=== PATIENT | female | born 1990 | race Caucasian/White ===

== ENCOUNTER 2022-06-15 19:23 | Emergency (ER) | payer OTHER ==
[2022-06-15 19:36] VITALS: BP 130/83; PULSE 68; RESP 20; TEMP 98.1; BMI 28.1
[2022-06-15] MEDS ORDERED: KETOROLAC TROMETHAMINE 30 MG/1 ML VIAL IM ONE (22:12)
[2022-06-15] MEDS ORDERED: KETOROLAC TROMETHAMINE 30 MG/1 ML VIAL ONE (22:33)
== END 2022-06-15 22:57 | disposition home or self-care (01) ==
LOC: JERFT 19:23
PROC: 3E0233Z Introduction of Anti-inflammatory into Muscle, Percutaneous Approach (ICD-10-PCS; principal; 2022-06-15)
DX: S83.91XA Sprain of unspecified site of right knee, initial encounter (principal); X50.0XXA Overexertion from strenuous movement or load, initial encounter; Y93.44 Activity, trampolining
CPT/HCPCS: 73560-TC-RT-FY; 99284-25